=== PATIENT | female | born 1960 | race Caucasian/White ===

== ENCOUNTER 2017-03-17 20:44 | Emergency (ER) | payer MEDICAID, SELFPAY ==
[2017-03-17 20:48] VITALS: BP 135/80; PULSE 114; RESP 28; TEMP 36.8; O2SAT 94; BMI 12.9
--- NOTE | 2017-03-17 21:58 | [facility].EDGENADL ---
ED Disposition Clinical Impression: Neck swelling Lung cancer Qualifiers: Laterality: unspecified laterality Lung location: unspecified part of lung Qualified Code(s): C34.90 - Malignant neoplasm of unspecified part of unspecified bronchus or lung Disposition: Home, Self-Care Condition on Discharge: Fair Instructions: DI for Skin Abscess Additional Instructions: Return to the emergency room if any difficulty breathing or swallowing or any fever greater than 101? Referrals: Ryanne Lezama [Primary Care Provider] - (See in the office on Sunday) - Critical Care Critical Care Time: No Attestation: On 03/17/17, the high probability of a clinically significant, sudden or life threatening deterioration of the following system(s) required my full and direct attention, intervention and personal management. The time I documented below is in addition to time spent performing reported procedures but includes the following listed in this critical care notation. Medical Decision Making Vital Signs: 03/17/17 20:48 Temperature 98.2 F Temperature Source Temporal Artery Scan Pulse Rate [Left Radial] 114 H Respiratory Rate 28 H Blood Pressure [Left Arm] 135/80 Blood Pressure Mean [Left Arm] 98 Blood Pressure Source [Left Arm] Automatic Cuff Blood Pressure Position [Left Arm] Supine 02 Sat by Pulse Oximetry 94 L Oxygen Delivery Method Room Air - Lab Data Lab Results 03/17/17 22:30: WBC 14.0 H, RBC 3.52 L, Hgb 9.6 L, Hct 31.5 L, MCV 89.6, MCH 27.2, MCHC 30.4 L, RDW 15.8, Plt Count 312, MPV 8.0, Neut % (Auto) 76.6, Lymph % (Auto) 13.6, [place] % (Auto) 8.1, Eos % (Auto) 1.2, Baso % (Auto) 0.4, Neut # (Auto) 10.7 H, Lymph # (Auto) 1.9, [place] # (Auto) 1.1 H, Eos # (Auto) 0.2, Baso # (Auto) 0.1 03/17/17 22:30: Sodium 135 L, Potassium 3.9, Chloride 100, Carbon Dioxide 26, Anion Gap 12.9, BUN 23 H, Creatinine 0.48 L, Estimated Creat Clear 73, Estimated GFR > 60, Est GFR ( Amer) > 60, Glucose 133 H, Calcium 9.2, Total Bilirubin 0.4, AST 32, ALT 21, Alkaline Phosphatase 121 H, Total Protein 7.4, Albumin 2.6 L, Globulin 4.8 H, Albumin/Globulin Ratio 0.5 L 03/17/17 22:30: Urine Color Dk yellow, Urine Appearance Clear, Urine pH 5.5, Ur Specific [place] >= 1.030, Urine Protein 1+, Urine Glucose (UA) Negative, Urine Ketones Negative, Urine Blood Trace-i, Urine Nitrate Negative, Urine Bilirubin Negative, Urine Urobilinogen 0.2, Ur Leukocyte Esterase Negative, Urine RBC 3-5, Urine WBC 3-5 Result diagrams: 03/17/17 22:30 03/17/17 22:30 Orders (Tests/Meds): ED MEDICATIONS Discontinued Medications Generic Name Dose Route Start Last Admin Trade Name Taniq PRN Reason Stop Dose Admin Iopamidol 75 ml 03/17/17 23:50 03/17/17 23:52 [id number]; 75ml Vial IV 03/17/17 23:51 75 ml ONCE ONE Administration Sodium Chloride 10 ml 03/17/17 23:56 03/17/17 23:57 Rad-Saline Flush 10ml Syringe IV 03/17/17 23:57 10 ml ONCE ONE Administration ORDERS Category Date Time Status CT soft tissue neck w con Stat Cat Scan 03/17/17 22:10 Taken - CT Data CT Scan: Other (neck soft tissue) Time Received: 00:23 Findings Narrative: CT scan interpreted by ad radiologist. Faxed report received and reviewed: Confluent heterogeneous masses extending from the anterior superior mediastinum up into the neck findings compatible with known malignancy. Fluid posterior to the pharynx could be due to diffuse anasarca, less likely abscess. 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 Bilateral internal jugular veins are not opacified at their proximal portions, could be occluded or this may be due to the timing of the contrast bolus. The left IJ vein is opacified at the C2 level extending caudally. No critical airway narrowing. - Reymundo Inquiry Pt receiving controlled substance: No Medical Decision Making Narrative: Case discussed with Dr. Leary, covering for Dr. Lise Bingham, his PCP. I reviewed all clinical data. It is not felt that
--- NOTE | 2017-03-17 22:10 | CT_ITS ---
CT soft tissue neck w con COMPARISON: None HISTORY: Right-sided neck edema, mass, lump, swelling in neck, stage IV lung cancer TECHNIQUE: Axial images are obtained following the intravenous administration of 75 mL of Isovue-370. Sagittal and coronal reformatted images were also generated and reviewed. FINDINGS: There are diffuse heterogeneous masses in the anterior and superior mediastinum more prominent on the right and right infraclavicular and supraclavicular region as well as in the bilateral posterior triangle region. These consist of rim-enhancing necrotic nodules consistent with patient's known neoplasm.. There is decrease density posterior to the hypopharynx and the previously vertebral region consistent with underlying fluid density and may be related to anasarca or edema. Abscess. Less likely. No enhancement evident in this region. This measures 1.6 cm AP and up to 4 cm transverse The nasopharynx, epiglottis, vocal folds have an unremarkable appearance. No tonsillar abscess. 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 Bilateral internal jugular veins are nonopacified and proximal portions and could be occluded or may be due to the contrast timing bolus. Extensive collateral vessels are present in the left hemithorax consistent with left subclavian vein occlusion There are scattered enlarged lymph nodes both sides of the neck. Diffuse emphysematous changes are present in the lung apices with coarsening of the interstitium with a small left effusion. IMPRESSION: 1. Confluent heterogeneously rim-enhancing masses within the anterior superior mediastinum into the neck on both sides more extensive on the right consistent with patient's known malignancy/metastatic disease. 2. Fluid posterior to the pharynx and may be related to diffuse anasarca. 3. Occluded left ICA. 4. Occluded left subclavian vein with diffuse collaterals in the left hemithorax. 5 bilateral internal jugular vein is not opacified at the proximal portions and may be related to contrast timing for occlusion. IMPRESSION:
[2017-03-17 22:38] LABS: Microscopic,Cath URINE MICROSCOPIC (MICROSCOPIC)
[2017-03-17 22:39] LABS: Basophils # 0.1 K/mm3 (0-0.2); Basophils % 0.4 % (0.1-2.0); Eosinophils # 0.2 K/mm3 (0.0-0.4); Eosinophils % 1.2 % (0.1-12.0); Hematocrit 31.5 % (37.0-47.0); Hemoglobin 9.6 g/dL (12.2-16.2); Lymphocytes # 1.9 K/mm3 (0.7-4.5); Lymphocytes % 13.6 K/mm3 (10-50); Mean Corpuscular HGB Conc 30.4 g/dL (31.8-35.4); Mean Corpuscular Hemoglobin 27.2 pg (27.0-31.2); Mean Corpuscular Volume 89.6 fl (81-99); Monocytes # 1.1 K/mm3 (0.1-1.0); Monocytes % 8.1 % (1.7-9.3); Neutrophils # 10.7 K/mm3 (1.8-7.8); Neutrophils % 76.6 % (37.0-80.0); Platelet Count 312 K/mm3 (142-424); Red Blood Count 3.52 M/mm3 (4.20-5.40); Red Cell Distribution Width 15.8 % (11.5-17.5)
[2017-03-17 22:41] LABS: Appearance,Urine/Cath CLEAR (Clear); Bilirubin,Cath Negative (Negative); Blood, Urine/Cath TRACE-I (Negative); Color,Urine/Cath DK YELLOW (Yellow); Glucose,Urine/Cath (UA) Negative (Negative); Ketones,Urine/Cath Negative (Negative); Leukocyte Esterase,Cath Negative (Negative); Nitrate,Cath Negative (Negative); PH,Urine/Cath 5.5 (5.0-8.5); Protein,Urine/Cath 1+ (Negative); Specific Gravity, Urine/Cath >= 1.030 (1.005-1.030); Urobilinogen,Cath 0.2 EU/dl (0.2)
[2017-03-17 22:45] LABS: Amorphous Sediment,Ur/Cath Trace /lpf
[2017-03-17 22:49] LABS: Alanine Aminotransferase 21 U/L (12-78); Albumin Level 2.6 gm/dL (3.4-5.0); Albumin/Globulin Ratio 0.5 (1.1-1.8); Alkaline Phosphatase 121 U/L (46-116); Anion Gap 12.9 mEq/L (5-15); Aspartate Amino Transferase 32 U/L (15-37); Bilirubin,Total 0.4 mg/dL (0.2-1.0); Blood Urea Nitrogen 23 mg/dL (7-18); Calcium 9.2 mg/dL (8.5-10.1); Carbon Dioxide 26 mmol/L (21.0-32.0); Chloride 100 mmol/L (98-107); Creatinine Clearance Estimated 73 mL/min (0-300); Creatinine,Serum 0.48 mg/dL (0.55-1.02); Estimated Glomerular Filt Rate > 60 ml/min (>60); GFR (African American) > 60 ML/MIN (>60); Globulin 4.8 gm/dl (1.3-3.2); Glucose 133 mg/dL (74-106); Potassium 3.9 mmoL/L (3.5-5.1); Sodium 135 mmol/L (136-145); Total Protein,Serum 7.4 gm/dL (6.4-8.2)
[2017-03-18 01:30] VITALS: BP 138/72; PULSE 100; RESP 22; TEMP 36.9
== END 2017-03-18 01:25 | disposition home or self-care (01) ==
PROVIDERS: Emergency Provider Emergency Medicine; PCP Family Medicine
DX: C34.90 Malignant neoplasm of unspecified part of unspecified bronchus or lung (principal); I63.9 Cerebral infarction, unspecified; Z87.891 Personal history of nicotine dependence; Z79.82 Long term (current) use of aspirin; Z88.6 Allergy status to analgesic agent
CPT/HCPCS: 36415; 70491; 80053; 81001; 85025; 99283; Q9967